=== PATIENT | male | born 1955 | race Caucasian/White ===

== ENCOUNTER → 2019-08-19 09:30 | Outpatient (BNVA) | payer MEDICARE, SELFPAY | PROVIDERS: PCP Family Medicine; Visit Provider Nurse Practitioner Family | DX: E10.9 Type 1 diabetes mellitus without complications (principal); E03.9 Hypothyroidism, unspecified; J44.9 Chronic obstructive pulmonary disease, unspecified; I25.2 Old myocardial infarction; I10 Essential (primary) hypertension; G25.81 Restless legs syndrome; E78.2 Mixed hyperlipidemia; G47.00 Insomnia, unspecified; G89.29 Other chronic pain; Z95.5 Presence of coronary angioplasty implant and graft | CPT/HCPCS: 36415; 80053; 83036; 84439; 84443; 84481 ==

== ENCOUNTER → 2020-03-14 09:29 | Outpatient (BNVA) | payer MEDICARE, SELFPAY | PROVIDERS: PCP Family Medicine; Visit Provider Family Medicine | DX: G47.00 Insomnia, unspecified (principal); E03.9 Hypothyroidism, unspecified; E10.9 Type 1 diabetes mellitus without complications; E11.9 Type 2 diabetes mellitus without complications; S91.339A Puncture wound without foreign body, unspecified foot, initial encounter; R29.898 Other symptoms and signs involving the musculoskeletal system | CPT/HCPCS: 36415; 80053; 80061; 83036; 84439; 84443 ==

== ENCOUNTER → 2020-07-18 10:42 | Outpatient (BNVA) | payer MEDICARE, SELFPAY | PROVIDERS: PCP Family Medicine; Visit Provider Nurse Practitioner Family | DX: E10.9 Type 1 diabetes mellitus without complications (principal) | CPT/HCPCS: 83036 ==

== ENCOUNTER → 2020-12-27 11:17 | Outpatient (BNVA) | payer MEDICARE, SELFPAY | PROVIDERS: PCP Family Medicine; Visit Provider Family Medicine | DX: E10.9 Type 1 diabetes mellitus without complications (principal); E03.9 Hypothyroidism, unspecified; J44.9 Chronic obstructive pulmonary disease, unspecified; I25.2 Old myocardial infarction; G25.81 Restless legs syndrome; I10 Essential (primary) hypertension; E78.2 Mixed hyperlipidemia; G47.00 Insomnia, unspecified; F32.9 Major depressive disorder, single episode, unspecified | CPT/HCPCS: 83036 ==

== ENCOUNTER → 2021-03-29 10:02 | Outpatient (BNVA) | payer MEDICARE, MEDICAID, SELFPAY | PROVIDERS: PCP Family Medicine; Visit Provider Nurse Practitioner Family | DX: E10.9 Type 1 diabetes mellitus without complications (principal); I10 Essential (primary) hypertension; E03.9 Hypothyroidism, unspecified; M25.531 Pain in right wrist; Z79.899 Other long term (current) drug therapy; Z74.1 Need for assistance with personal care | CPT/HCPCS: 36415; 73110; 80053; 80061; 82043; 83036; 84443; 85025 ==